=== PATIENT | female | born 1990 | race Caucasian/White ===

== ENCOUNTER 2017-10-04 07:44 | Emergency (ER) | payer OTHER, MEDICAID ==
[~2017-10-04] VITALS: Ht 160 cm; Wt 97.5 kg
[~2017-10-04 07:44] MED LIST: CYCLOBENZAPRINE5 MG PO; HYDROCODONE-AP1 EAC6 PO; TORADOL 10 MG T10 MG PO; ULTRAM 50MG TAB50 MG PO
[2017-10-04] MEDS ORDERED: TRAZODONE 150150 M1 PO (07:54)
[2017-10-04] MEDS ORDERED: CYMBALTA20 MG PO (07:54)
[2017-10-04] MEDS ORDERED: ACETAMINOPHEN-1 EAC1 PO (08:44)
[2017-10-04] MEDS ORDERED: IBUPROFEN 800800 M1 PO (08:44)
[2017-10-04 09:27] VITALS: BP 120/84
== END 2017-10-04 09:28 | disposition home or self-care (01) ==
LOC: M.ERS 07:44
DX: K08.89 Other specified disorders of teeth and supporting structures (principal); J45.909 Unspecified asthma, uncomplicated; Z88.0 Allergy status to penicillin

== ENCOUNTER 2017-11-03 17:09 | Emergency (ER) | payer OTHER, MEDICAID ==
[~2017-11-03] VITALS: Ht 160 cm; Wt 97.5 kg
[~2017-11-03 17:09] MED LIST changes: +ACETAMINOPHEN-1 EAC1 PO; +CYMBALTA20 MG PO; +IBUPROFEN 800800 M1 PO; +TRAZODONE 150150 M1 PO
[2017-11-03] MEDS ORDERED: CYMBALTA60 MG PO (17:24)
[2017-11-03] MEDS ORDERED: VALIUM5 MG PO (17:25)
[2017-11-03] MEDS ORDERED: TRAMADOL 50 MG50 MG PO (17:25)
[2017-11-03] MEDS ORDERED: DIFLUCAN150 M1 PO (17:32)
[2017-11-03] MEDS ORDERED: ULTRAM 50MG TAB50 MG PO (17:32)
[2017-11-03] MEDS ORDERED: CLEOCIN HCL150 MG PO (17:32)
[2017-11-03 17:40] VITALS: BP 136/94
== END 2017-11-03 17:42 | disposition home or self-care (01) ==
LOC: M.ERS 17:09
DX: K04.7 Periapical abscess without sinus (principal); J45.909 Unspecified asthma, uncomplicated; Z88.0 Allergy status to penicillin

== ENCOUNTER 2017-11-16 15:55 | Emergency (ER) | payer OTHER, MEDICAID ==
[~2017-11-16] VITALS: Ht 160 cm; Wt 97.5 kg
[~2017-11-16 15:55] MED LIST changes: +CLEOCIN HCL150 MG PO; +CYMBALTA60 MG PO; +DIFLUCAN150 M1 PO; +TRAMADOL 50 MG50 MG PO; +VALIUM5 MG PO
[2017-11-16] MEDS ORDERED: MEDROLDOSEPACK PO (16:56)
[2017-11-16 17:10] VITALS: BP 136/84
== END 2017-11-16 17:11 | disposition home or self-care (01) ==
LOC: M.ERS 15:55
DX: M77.11 Lateral epicondylitis, right elbow (principal); J45.909 Unspecified asthma, uncomplicated; Z88.0 Allergy status to penicillin

== ENCOUNTER 2019-10-23 22:39 | Emergency (ER) | payer OTHER ==
[~2019-10-23] VITALS: Ht 160 cm; Wt 86.2 kg
[~2019-10-23 22:39] MED LIST changes: +MEDROLDOSEPACK PO
[2019-10-23] MEDS ORDERED: SEROQUEL 25 MG25 M1 PO (23:23)
[2019-10-23] MEDS ORDERED: LAMICTAL XR200 MG PO (23:23)
[2019-10-24] MEDS ORDERED: NORCO 5-325 TA1 EAC1 PO (00:12)
[2019-10-24] MEDS ORDERED: ZOFRAN ODT4 MG DISSOLVE (00:12)
[2019-10-24 00:22] LABS: ABSOLUTE LYMPHOCYTES 1.7 thou/uL (0.8-5.3); ABSOLUTE MONOCYTES 0.6 thou/uL (0.0-1.2); ABSOLUTE NEUTROPHILS 8.8 thou/uL (1.6-8.1); BASOPHILS 0.2 %; HEMATOCRIT 41.4 % (37.0-47.0); HEMOGLOBIN 13.9 gm/dL (12.0-15.0); MCH 27.1 pg (26.0-34.0); MCHC 33.5 g/dL (28.0-37.0); MONOCYTES 5.7 %; MPV 9.4 fl. (7.2-11.1); NUCLEATED RBCS 0 /100WBC; PLATELET COUNT* 393 thou/uL (150-400); POLYS 79.1 %; RBC 5.11 mil/uL (4.20-5.00); RDW-CV 13.7 % (10.5-14.5); WBC 11.1 thou/uL (4.0-11.0)
[2019-10-24 00:27] LABS: CALCIUM 9.2 mg/dL (8.5-10.1); POTASSIUM 3.3 mmol/L (3.5-5.1)
[2019-10-24 00:31] LABS: TOTAL BILIRUBIN 0.5 mg/dL (<0.1-1.0); TOTAL PROTEIN 7.9 g/dL (6.4-8.2)
[2019-10-24 00:40] LABS: INFLUENZA A ANTIGEN Negative (Negative); INFLUENZA B ANTIGEN Negative (Negative)
[2019-10-24 01:05] VITALS: BP 147/86
== END 2019-10-24 01:05 | disposition home or self-care (01) ==
LOC: M.ERS 22:39
PROVIDERS: Family Medicine
DX: R11.2 Nausea with vomiting, unspecified (principal); J45.909 Unspecified asthma, uncomplicated; Z88.5 Allergy status to narcotic agent; Z88.0 Allergy status to penicillin

== ENCOUNTER 2020-06-30 12:23 | Emergency (ER) | payer OTHER ==
[~2020-06-30] VITALS: Ht 154.9 cm; Wt 66.7 kg
[~2020-06-30 12:23] MED LIST changes: +LAMICTAL XR200 MG PO; +NORCO 5-325 TA1 EAC1 PO; +SEROQUEL 25 MG25 M1 PO; +ZOFRAN ODT4 MG DISSOLVE
[2020-06-30 12:51] LABS: URINE BLOOD 3+ (Negative); URINE CLARITY CLEAR; URINE COLOR YELLOW; URINE GLUCOSE-RANDOM NEGATIVE (Negative); URINE LEUKOCYTES-REFLEX NEGATIVE (Negative); URINE NITRITE-REFLEX NEGATIVE (Negative); URINE PROTEIN 2+ (Negative); URINE SPECIFIC GRAVITY >= 1.030 (1.005-1.030); URINE UROBILINOGEN 0.2 E.U./dl (0.2-1.0)
[2020-06-30 12:53] LABS: ICTOTEST (BILI CONFIRMATORY) Negative (Negative); URINE BILIRUBIN 1+ (Negative); URINE KETONES 3+ (Negative)
[2020-06-30 12:58] LABS: SQUAMOUS >10 Many /LPF (0-3)
[2020-06-30 12:59] LABS: BACTERIA-REFLEX 1-9 Few /HPF (None Seen); CASTS None Seen /LPF (None Seen); CRYSTALS None Seen /LPF (None Seen); MUCUS >6 Heavy strn/LPF (None Seen); URINE RBC 3-10 Few /HPF (0-2); URINE WBC-REFLEX None Seen /HPF (0-5)
[2020-06-30 13:18] LABS: ABSOLUTE BASOPHILS 0.1 thou/uL (0.0-0.2); ABSOLUTE MONOCYTES 0.4 thou/uL (0.0-1.2); BASOPHILS 0.5 %; HEMATOCRIT 46.8 % (37.0-47.0); HEMOGLOBIN 15.6 gm/dL (12.0-15.0); LYMPHOCYTES 10.7 %; MCH 28.1 pg (26.0-34.0); MCHC 33.3 g/dL (28.0-37.0); MCV 84.4 fL (80.0-100.0); MONOCYTES 4.6 %; MPV 8.8 fl. (7.2-11.1); NUCLEATED RBCS 0 /100WBC; PLATELET COUNT* 351 thou/uL (150-400); POLYS 84.2 %; RBC 5.55 mil/uL (4.20-5.00); WBC 9.5 thou/uL (4.0-11.0)
[2020-06-30 13:22] LABS: CALCIUM 9.3 mg/dL (8.5-10.1); CREATININE 1.1 mg/dL (0.6-1.3)
[2020-06-30 13:26] LABS: ALBUMIN 4.2 g/dL (3.4-5.0); TOTAL BILIRUBIN 0.8 mg/dL (<0.1-1.0); TOTAL PROTEIN 8.5 g/dL (6.4-8.2)
[2020-06-30] MEDS ORDERED: OMEPRAZOLE 20 M20 M1 PO (15:12)
[2020-06-30] MEDS ORDERED: APAP W/CODEINE1 TA2 PO (15:12)
[2020-06-30] MEDS ORDERED: ONDANSETRON ODT4 MG PO (15:12)
[2020-06-30] MEDS ORDERED: PROTONIX 20 MG20 M1 PO (15:12)
[2020-06-30 15:30] VITALS: BP 130/83
== END 2020-06-30 15:30 | disposition home or self-care (01) ==
LOC: M.ERS 12:23
PROVIDERS: Physician Assistant
DX: M54.5 Low back pain (principal); R11.2 Nausea with vomiting, unspecified; J45.909 Unspecified asthma, uncomplicated; G35 Multiple sclerosis; Z88.5 Allergy status to narcotic agent; Z88.0 Allergy status to penicillin; Z88.8 Allergy status to other drugs, medicaments and biological substances